=== PATIENT | male | born 1960 | race Caucasian/White ===

== ENCOUNTER 2020-04-19 02:11 | Emergency (ER) | payer BC ==
[~2020-04-19] VITALS: Ht 175.3 cm; Wt 83.0 kg
[2020-04-19] MEDS ORDERED: FAMOTIDINE 20 MG/2 ML VIAL IVP ONE (02:30)
[2020-04-19] MEDS ORDERED: ASPIRIN CHEWABLE 81 MG TABLET. PO ONE (02:30)
[2020-04-19] MEDS ORDERED: NITROGLYCERIN SUBLINGUAL 0.4 MG BOTTLE OF 25. SL PRN (02:30)
[2020-04-19] MEDS ORDERED: PANTOPRAZOLE IV 40 MG VIAL. IVP ONE (02:30)
[2020-04-19] MEDS ORDERED: ONDANSETRON PF 4 MG/2 ML VIAL. IVP ONE (02:30)
[2020-04-19] MEDS ORDERED: ONDANSETRON PF 4 MG/2 ML VIAL. ONE (02:30)
[2020-04-19] MEDS ORDERED: MORPHINE SULFATE 4 MG/ML DISP.SYRIN. ONE (02:30)
[2020-04-19] MEDS ORDERED: MORPHINE SULFATE 4 MG/ML DISP.SYRIN. IV ONE (02:30)
--- NOTE | 2020-04-19 02:35 | PHYS DOC ---
Past History Past Medical History: Cancer Past Surgical History: No Surgical History Additional Past Surgical Histo: colon resection, skin and lung CA removal Smoking: Cigarettes, Greater than 1 pack/day Alcohol Use: None Drug Use: None General Adult EDM: Chief Complaint: CHEST PAIN HPI: HPI: 59-year-old male presents with sudden onset epigastric abdominal pain. The patient was asleep when the pain started and it woke him from his sleep. He thought it was indigestion so he took some Rolaids and drank some soda. These did not help. The pain has gotten worse and is now 10 out of 10. Pressure-like sensation. He is very tender in the epigastric region. Patient is a daily, heavy drinker. He had several beers and a couple mixed drinks before going to sleep. No history of pancreatitis. He has a history of lung cancer. He continues to smoke daily. He denies fever or chills. Review of Systems: Review of Systems: Constitutional: Denies fever or chills Eyes: Denies change in visual acuity HENT: Denies nasal congestion or sore throat Respiratory: Denies cough or shortness of breath Cardiovascular: Denies chest pain or edema GI: Epigastric abdominal pain, nausea. Denies vomiting, bloody stools or diarrhea : Denies dysuria Musculoskeletal: Denies back pain or joint pain Integument: Denies rash Neurologic: Denies headache, focal weakness or sensory changes Endocrine: Denies polyuria or polydipsia Lymphatic: Denies swollen glands Psychiatric: Denies depression or anxiety Current Medications: Current Meds: Current Medications Medications (Trade) Dose Ordered Sig/[facility] Start Time Stop Time Status Last Admin Dose Admin Aspirin (Aspirin Chewable) 324 mg 1X ONCE 04/19/20 02:30 04/19/20 02:31 UNV Famotidine (Pepcid Vial) 20 mg 1X ONCE 04/19/20 02:30 04/19/20 02:31 UNV Morphine Sulfate (Morphine 4mg Syringe) 4 mg STK-MED ONCE 04/19/20 02:30 04/19/20 02:30 DC Nitroglycerin (Nitrostat) 0.4 mg PRN Q5MIN PRN 04/19/20 02:30 UNV Ondansetron HCl (Zofran) 4 mg STK-MED ONCE 04/19/20 02:30 04/19/20 02:30 DC Pantoprazole Sodium (Protonix Vial) 40 mg 1X ONCE 04/19/20 02:30 04/19/20 02:31 UNV Allergies: Allergies: Allergies Coded Allergies Type Severity Reaction Last Updated Verified No Known Allergies Allergy Unknown 04/19/20 Yes Physical Exam: PE: Constitutional: Well developed, well nourished, mild acute distress, non-toxic appearance. [] HENT: Normocephalic, atraumatic, bilateral external ears normal, oropharynx moist, no oral exudates, nose normal. [] Eyes: PERRLA, EOMI, conjunctiva normal, no discharge. [] Neck: Normal range of motion, no tenderness, supple, no stridor. [] Cardiovascular: Heart rate regular rhythm, no murmur [] Lungs & Thorax: Bilateral breath sounds clear to auscultation [] Abdomen: Bowel sounds normal, soft, severe epigastric tenderness, no masses, no pulsatile masses. [] Skin: Warm, dry, no erythema, no rash. [] Back: No tenderness, no CVA tenderness. [] Extremities: No tenderness, no cyanosis, no clubbing, ROM intact, no edema. [] Neurologic: Alert and oriented X 3, normal motor function, normal sensory function, no focal deficits noted. [] Psychologic: Affect normal, judgement normal, mood normal. [] Current Patient Data: Vital Signs: Vital Signs Date Time Temp Pulse Resp B/P (MAP) Pulse Ox O2 Delivery O2 Flow Rate FiO2 04/19/20 02:11 98.4 84 20 164/94 (117) 97 Room Air EKG: EKG: Sinus rhythm, rate 77, normal axis, no ST elevations or depressions. [] Radiology/Procedures: Radiology/Procedures: [] Heart Score: Risk Factors: Risk Factors: DM, Current or recent (<one month) smoker, HTN, HLP, family history of CAD, obesity. Risk Scores: Score 0 - 3: 2.5% MACE over next 6 weeks - Discharge Home Score 4 - 6: 20.3% MACE over next 6 weeks - Admit for Clinical Observation Score 7 - 10: 72.7% MACE over next 6 weeks - Early Invasive Strategies Course & Med Decision Making: Course & Med Decision Making Pertinent Labs and Imaging studies reviewed. (See chart for details) The patient's EKG is unremarkable. His labs are significant for elevated liver enzymes. His troponin is negative. His lipase is normal. His chest x-ray is n egative for acute findings. The patient was given 4 mg of morphine and 4 mg Zofran. He was also given 324 aspirin, 20 of Pepcid, and 40 of Protonix. His pain has improved as the patient was able to fall asleep. His CT scan is negative for acute findings but does show a distended gallbladder. His gallbladder could be the source of his pain if it is not functioning properly. I advised that he follow-up with his primary care physician as needed. He is stable for discharge at this time. [] Dragon Disclaimer: Dragon Disclaimer: This electronic medical record was generated, in whole or in part, using a voice recognition dictation system. Departure Departure: Impression: Primary Impression: Epigastric abdominal pain Disposition: 01 DC HOME SELF CARE/HOMELESS Condition: STABLE Referrals: CLAUDIA CHAVIRA MD (PCP) Patient Instructions: Abdominal Pain, [id number] Additional Instructions: Your abdominal pain could be related to your gallbladder. If you continue to have symptoms similar to this, you should have your primary care physician further evaluate your gallbladder and whether it is functioning properly. DANIELLA GARRETT DO Apr 19, 2020 02:35
[2020-04-19] MEDS ORDERED: CONTRAST GIVEN. MC PRN (03:00)
[2020-04-19] MEDS ORDERED: IOHEXOL 300 MG/ML 75 ML VIAL. IV ONE (03:00)
--- NOTE | 2020-04-19 03:19 | EKG ---
[address] [address] Test Date: 2020-04-19 Test Time: 02:21:12 Pat Name: NEVA MCKEON Department: Room: Gender: M Bridal Sales Consultant: RADHA : 1960 Requested By: DANIELLA GARRETT Order Number: [id number] Reading MD: Measurements Intervals [place] Rate: 77 P: 64 MN: 156 QRS: 74 QRSD: 82 T: 53 QT: 376 QTc: 427 Interpretive Statements SINUS RHYTHM NORMAL ECG RI6.02 No previous ECG available for comparison
[2020-04-19 03:21] LABS: BASO % 1 % (0-3); CALCIUM 8.9 mg/dL (8.5-10.1); EOS # 0.3 x10^3/uL (0.0-0.7); EOS % 4 % (0-3); GFR 76.2; HEMATOCRIT 50.9 % (39.0-53.0); LYMPH # 1.8 x10^3/uL (1.0-4.8); LYMPH % 22 % (24-48); MEAN CORPUSCULAR HEMOGLOBIN 35 pg (25-35); MEAN CORPUSCULAR HGB CONC 34 g/dL (31-37); MEAN CORPUSCULAR VOLUME 104 fL (79-100); MONO % 13 % (0-9); NEUT % 61 % (31-73); PLATELET COUNT 159 x10^3/uL (140-400); POTASSIUM 3.7 mmol/L (3.5-5.1); RED BLOOD COUNT 4.88 x10^6/uL (4.30-5.70); RED CELL DISTRIBUTION WIDTH 12.9 % (11.5-14.5); WHITE BLOOD COUNT 8.2 x10^3/uL (4.0-11.0)
[2020-04-19 03:28] LABS: ALBUMIN 3.6 g/dL (3.4-5.0); ALBUMIN/GLOBULIN RATIO 0.8 (1.0-1.7); TOTAL BILIRUBIN 0.4 mg/dL (0.2-1.0); TOTAL PROTEIN 8.2 g/dL (6.4-8.2)
[2020-04-19 03:45] VITALS: BP 145/82
--- NOTE | 2020-04-19 04:04 | RAD ---
CT SCAN OF THE ABDOMEN AND PELVIS WITH IV CONTRAST. History: Reason: epigastric pain, OMNI 300, 75ml / Spl. Instructions: / History: Comparison:August 14, 2015. Procedure: Contiguous axial images of the abdomen and pelvis were performed after the administration of 75 cc of Omni 300 IV contrast. Oral contrast: No. Findings: The appendix is normal. The gallbladder is fairly distended but appears normal. There is a suture line in the sigmoid colon. Liver: Unremarkable Spleen: Unremarkable Pancreas: Unremarkable Adrenal Glands: Unremarkable Kidneys: Small cyst on the right. Ablation scar in the posterior left kidney There is no mass or lymphadenopathy. There is no free air. There is no free fluid. The urinary bladder appears normal. Impression: 1. Ablation scar posterior left kidney. 2. The gallbladder is well distended but otherwise appears normal. End impression. PQRS Compliance Statement: One or more of the following individualized dose reduction techniques were utilized for this examination: 1. Automated exposure control 2. Adjustment of the mA and/or kV according to patient size 3. Use of iterative reconstruction technique Electronically signed by: Channing Buenrostro III, MD (04/19/2020 4:01 AM) [facility]
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
== END 2020-04-19 04:18 | disposition home or self-care (01) ==
LOC: ER 02:11
DX: R10.13 Epigastric pain (principal); R20.2 Paresthesia of skin; R11.0 Nausea; F17.210 Nicotine dependence, cigarettes, uncomplicated; Z98.890 Other specified postprocedural states; Z85.9 Personal history of malignant neoplasm, unspecified
CPT/HCPCS: 36415; 71045; 74177; 80053; 83690; 84484; 85025; 93005; 96374; 96375; 99285; C9113; J2270; J2405; J3490; Q9967

== ENCOUNTER 2020-09-13 22:25 | Emergency (ER) | payer OTHER ==
[~2020-09-13] VITALS: Ht 175.3 cm; Wt 83.0 kg
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
[2020-09-14] MEDS ORDERED: LIDOCAINE/EPI/TETRACAINE TOPICAL GEL 3 ML. TP ONE
[2020-09-14] MEDS ORDERED: TRANEXAMIC ACID 1,000 MG/10 ML VIAL. ONE
[2020-09-14] MEDS ORDERED: IV NORMAL SALINE 250ML 0 ML ONE (00:01)
[2020-09-14 00:25] LABS: BASO % 0 % (0-3); EOS # 0.3 x10^3/uL (0.0-0.7); EOS % 4 % (0-3); HEMATOCRIT 45.3 % (39.0-53.0); HEMOGLOBIN 15.6 g/dL (13.0-17.5); LYMPH # 1.7 x10^3/uL (1.0-4.8); LYMPH % 23 % (24-48); MEAN CORPUSCULAR HEMOGLOBIN 36 pg (25-35); MEAN CORPUSCULAR HGB CONC 34 g/dL (31-37); MEAN CORPUSCULAR VOLUME 103 fL (79-100); MONO # 0.9 x10^3/uL (0.0-1.1); MONO % 12 % (0-9); NEUT # 4.5 x10^3uL (1.8-7.7); NEUT % 61 % (31-73); PLATELET COUNT 140 x10^3/uL (140-400); RED BLOOD COUNT 4.39 x10^6/uL (4.30-5.70); RED CELL DISTRIBUTION WIDTH 12.8 % (11.5-14.5); WHITE BLOOD COUNT 7.3 x10^3/uL (4.0-11.0)
[2020-09-14] MEDS ORDERED: TRANEXAMIC ACID 1,000 MG/10 ML VIAL. TOP ONE (00:30)
[2020-09-14] MEDS ORDERED: IV RINGERS SOLUTION,LACTATED 1,000 ML IV ONE (00:30)
[2020-09-14 00:32] LABS: CALCIUM 8.2 mg/dL (8.5-10.1); CREATININE 0.8 mg/dL (0.7-1.3); GFR 98.3; POTASSIUM 3.5 mmol/L (3.5-5.1)
[2020-09-14 01:25] VITALS: BP 128/82
[2020-09-14] MEDS ORDERED: TRANEXAMIC ACID 1,000 MG in IV NORMAL SALINE 250ML 250 ML IV ONE (06:00)
== END 2020-09-14 01:50 | disposition short-term general hospital (02) ==
LOC: ER 22:25
DX: S02.119A Unspecified fracture of occiput, initial encounter for closed fracture (principal); S22.32XA Fracture of one rib, left side, initial encounter for closed fracture; S01.81XA Laceration without foreign body of other part of head, initial encounter; S51.012A Laceration without foreign body of left elbow, initial encounter; Z88.0 Allergy status to penicillin; F17.210 Nicotine dependence, cigarettes, uncomplicated; V43.52XA Car driver injured in collision with other type car in traffic accident, initial encounter; Y93.89 Activity, other specified; Y92.488 Other paved roadways as the place of occurrence of the external cause; Y99.8 Other external cause status
CPT/HCPCS: 36415; 70450; 70486; 72125; 73080; 80048; 85025; 85610; 86850; 86900; 86901; 96361; 96374; 96376; 99285; J3010; J7120

== ENCOUNTER → 2020-10-05 | Outpatient (CLI) | payer OTHER ==
[2020-09-14 01:25] VITALS: BP 128/82
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
== END ==
LOC: DXRAD 11:21
PROVIDERS: ATTEND Neurological Surgery
DX: S12.000A Unspecified displaced fracture of first cervical vertebra, initial encounter for closed fracture (principal); M47.812 Spondylosis without myelopathy or radiculopathy, cervical region; X58.XXXA Exposure to other specified factors, initial encounter; Y93.89 Activity, other specified; Y92.89 Other specified places as the place of occurrence of the external cause; Y99.8 Other external cause status
CPT/HCPCS: 72040

== ENCOUNTER → 2020-10-30 | Outpatient (CLI) | payer OTHER ==
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
== END ==
LOC: CT 09:46
PROVIDERS: ATTEND Neurological Surgery
DX: M47.812 Spondylosis without myelopathy or radiculopathy, cervical region (principal)
CPT/HCPCS: 72125

== ENCOUNTER → 2020-12-10 | Outpatient (CLI) | payer SELFPAY ==
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
== END ==
LOC: CT 09:50
PROVIDERS: ATTEND Neurological Surgery
DX: S12.040A Displaced lateral mass fracture of first cervical vertebra, initial encounter for closed fracture (principal); X58.XXXA Exposure to other specified factors, initial encounter; Y93.89 Activity, other specified; Y92.89 Other specified places as the place of occurrence of the external cause; Y99.8 Other external cause status
CPT/HCPCS: 72125